=== PATIENT | female | born 1995 | race Caucasian/White ===

== ENCOUNTER → 2020-12-10 | Outpatient (CLI) | payer OTHER ==
[2020-12-11 08:14] LABS: RHEUMATOID ARTHRITIS FACTOR 10.9 IU/mL (0.0-13.9)
== END ==
LOC: LAB 12:20
PROVIDERS: Internal Medicine
DX: D89.89 Other specified disorders involving the immune mechanism, not elsewhere classified (principal); M25.50 Pain in unspecified joint; R76.8 Other specified abnormal immunological findings in serum
CPT/HCPCS: 36415; 82728; 83520; 84439; 84443; 85652; 86140; 86200; 86431